=== PATIENT | female | born 1985 | race Two or more races ===

== ENCOUNTER 2018-04-26 14:00 | Inpatient (IN) | payer OTHER ==
[~2018-04-26] VITALS: Ht 157.5 cm; Wt 82.6 kg
[2018-05-17] MEDS ORDERED: PRENATAL TABLE1 EACH PO (09:41)
== END 2018-05-20 13:08 | disposition home or self-care (01) | DRG 788 ==
LOC: LDR 05-02 14:00 → OB/GYN 05-17 05:52 → LDR 05-17 06:50 → OB/GYN 05-17 21:32
PROVIDERS: ADMIT Obstetrics & Gynecology
PROC: 10907ZC Drainage of Amniotic Fluid, Therapeutic from Products of Conception, Via Natural or Artificial Opening (ICD-10-PCS; 2018-05-17)
PROC: 3E033VJ Introduction of Other Hormone into Peripheral Vein, Percutaneous Approach (ICD-10-PCS; 2018-05-17)
PROC: 4A1HXCZ Monitoring of Products of Conception, Cardiac Rate, External Approach (ICD-10-PCS; 2018-05-17)
PROC: 10D00Z1 Extraction of Products of Conception, Low, Open Approach (ICD-10-PCS; principal; 2018-05-17 19:00)
DX: O61.0 Failed medical induction of labor (principal); Z3A.40 40 weeks gestation of pregnancy; Z37.0 Single live birth

== ENCOUNTER 2018-05-12 08:13 | Outpatient (CLI) | payer OTHER | END 2018-05-12 09:20 | disposition home or self-care (01) | LOC: NST 08:13 | DX: Z34.83 Encounter for supervision of other normal pregnancy, third trimester (principal) ==

== ENCOUNTER 2018-05-15 14:26 | Outpatient (CLI) | payer OTHER | END 2018-05-15 15:58 | disposition home or self-care (01) | LOC: NST 14:26 | DX: Z34.83 Encounter for supervision of other normal pregnancy, third trimester (principal) ==

== ENCOUNTER 2022-08-17 10:31 | Inpatient (IN) | payer OTHER ==
[~2022-08-17] VITALS: Ht 157.5 cm; Wt 76.2 kg
[~2022-08-17 10:31] MED LIST: PRENATAL TABLE1 EACH PO
[2022-08-17] MEDS ORDERED: MONTELUKAST SOD10 MG (15:34)
== END 2022-08-18 18:05 | disposition home or self-care (01) | DRG 819 ==
LOC: LDR 10:31
PROVIDERS: ADMIT Obstetrics & Gynecology Maternal & Fetal Medicine; ATTEND Obstetrics & Gynecology Maternal & Fetal Medicine
PROC: 0UVC7ZZ Restriction of Cervix, Via Natural or Artificial Opening (ICD-10-PCS; principal; 2022-08-17)
PROC: 4A1HXCZ Monitoring of Products of Conception, Cardiac Rate, External Approach (ICD-10-PCS; 2022-08-17)
DX: O34.32 Maternal care for cervical incompetence, second trimester (principal); Z3A.18 18 weeks gestation of pregnancy; Z20.822 Contact with and (suspected) exposure to COVID-19

== ENCOUNTER 2022-10-26 10:57 | Outpatient (CLI) | payer OTHER ==
[~2022-10-26 10:57] MED LIST changes: +MONTELUKAST SOD10 MG
== END 2022-10-26 13:51 | disposition home or self-care (01) ==
LOC: LAB 10:57 → NST 10:57
PROVIDERS: ATTEND Obstetrics & Gynecology
DX: Z34.83 Encounter for supervision of other normal pregnancy, third trimester (principal)

== ENCOUNTER 2022-12-27 10:20 | Inpatient (IN) | payer OTHER ==
[~2022-12-27] VITALS: Ht 157.5 cm; Wt 2.7 kg
[2022-12-27 12:06] LABS: INR 0.97; PARTIAL THROMBOPLASTIN TIME 24.7 SECONDS (22.0-34.0); PROTHROMBIN TIME 10.2 SECONDS (9.0-11.5)
[2022-12-27 12:09] LABS: ALBUMIN 2.8 gm/dL (3.4-5.0); BILIRUBIN TOTAL 0.35 mg/dL (0.3-1.2); CALCIUM 8.4 mg/dL (8.5-10.1); CREATININE SERUM 0.43 mg/dL (0.55-1.02); GFR 164.33; GLOBULINA 3.8 G/DL (2.4-3.5); POTASSIUM 3.8 mEq/L (3.5-5.1); TOTAL PROTEIN 6.6 gm/dL (6.4-8.2)
[2022-12-30 12:20] LABS: HEMATOCRIT 32.8 % (36.0-45.00); HEMOGLOBIN 11.1 g/dL (12.0-15.00); MEAN CELL VOLUME 90.9 fL (80.00-100.00); MEAN CORPUSCULAR HEMOGLOBIN 30.8 pg (27.00-32.0); MEAN CORPUSCULAR HGB CONC 33.8 g/dl (32.0-36.0); PLATELET COUNT 182 K/uL (150-450); RED BLOOD COUNT 3.61 M/uL (4.00-6.00); RED CELL DISTRIBUTION WIDTH 14.4 % (11.5-14.5)
== END 2022-12-31 13:40 | disposition home or self-care (01) | DRG 788 ==
LOC: O/R 12-29 08:37 → OB/GYN 12-29 10:30
PROVIDERS: Obstetrics & Gynecology; ADMIT Obstetrics & Gynecology; ATTEND Obstetrics & Gynecology
PROC: 4A1HXCZ Monitoring of Products of Conception, Cardiac Rate, External Approach (ICD-10-PCS; 2022-12-29)
PROC: 10D00Z1 Extraction of Products of Conception, Low, Open Approach (ICD-10-PCS; principal; 2022-12-29 15:15)
DX: O34.211 Maternal care for low transverse scar from previous cesarean delivery (principal); Z3A.37 37 weeks gestation of pregnancy; Z37.0 Single live birth; Z20.822 Contact with and (suspected) exposure to COVID-19